=== PATIENT | female | born 1990 | race Caucasian/White ===

== ENCOUNTER 2017-11-15 12:36 | Emergency (ER) | payer OTHER ==
[~2017-11-15] VITALS: Ht 152.4 cm; Wt 51.7 kg
[2017-11-15 12:39] VITALS: Ht 152.4 cm; Wt 51.7 kg
[2017-11-15 14:27] LABS: BASOPHIL % 0.3 % (0-2); PLATELET COUNT 247 x10^3mcL (130-400); RED CELL DISTRIBUTION WIDTH 13.9 % (11.5-14.5)
[2017-11-15 14:39] LABS: CALCIUM 8.6 mg/dL (8.5-10.1); CARBON DIOXIDE 24.9 mmol/L (21-32); CHLORIDE SERUM 102 mmol/L (98-107); CREATININE SERUM 0.5 mg/dL (0.6-1.0); GFR1 > 60 mL/min; GLUCOSE SERUM 97 mg/dL (74-106); POTASSIUM SERUM 3.4 mmol/L (3.5-5.1); SODIUM SERUM 140 mmol/L (136-145)
[2017-11-15 14:44] LABS: ALBUMIN 4.3 g/dL (3.4-5.0); ALKALINE PHOSPHATASE 34 U/L (46-116); ALT/SGPT 12 U/L (14-59); AST/SGOT 9 U/L (15-37); BILIRUBIN TOTAL 1.3 mg/dL (0.20-1.00); TOTAL PROTEIN, SERUM 7.3 g/dL (6.4-8.2)
[2017-11-15 15:03] LABS: AMPHETAMINE QUAL UR NONE DETECTED (NEG <=1000)
[2017-11-15 15:39] VITALS: BP 115/84
== END 2017-11-15 15:39 | disposition home or self-care (01) ==
LOC: ED 12:36
PROVIDERS: Emergency Medicine
DX: R07.89 Other chest pain (principal)
CPT/HCPCS: 36415; Q0092